=== PATIENT | male | born 1960 | race Caucasian/White ===

== ENCOUNTER 2016-04-05 15:36 | Emergency (ER) | payer OTHER ==
--- NOTE | 2016-04-05 15:52 | EDPHY ---
H & P Source: Patient, EMS Exam Limitations: No limitations HPI/ROS: CHIEF COMPLAINT: A skiing accident, right-sided rib pain HISTORY OF PRESENT ILLNESS: Patient was skiing this afternoon at [place]. He came to an area that he felt was too steep to ski on, thus he removed his skis. He was walking through this area when he slipped and began to slide. He said that he slipped approximately 50 feet when he struck a tree. HE struck a tree with the right anterior ribs. SInce that time he has had a sharp pain in that area and some shortness of breath. Mild to moderate 1st, now moderate to severe. Worse with inspiration and palpation. Focally over the right anterior axillary line. NO left-sided pain. NO head or neck injury. No loss of consciousness. No back pain. No abdominal pain. NO injuries to the extremities. Injury occurred within the past 2 hours. NO other associated complaints or modifying factors. REVIEW OF SYSTEMS: Ten systems reviewed and are negative unless otherwise noted in the HPI EXAMINATION General Appearance: Alert, no distress Head: normocephalic, atraumatic . No hematoma. NO abrasions or lacerations. Eyes: Pupils equal and round, no conjunctival pallor or injection . EOMs intact. ENT, Mouth: Mucous membranes moist . Uvula midline pain Neck: Normal inspection, supple, non-tender. Painless range of motion all planes. NO bony crepitus or deformity. Respiratory: Lungs are clear to auscultation . No wheezing or rhonchi. There is splinting with inspiration. There is pain to palpation of the right anterior axillary and midaxillary line. NO crepitus or increased tympany. Cardiovascular: Regular rate and rhythm . NO murmur. Pulses intact distally Gastrointestinal: Abdomen is soft and nontender. No tympany or rigidity. Back: non-tender, no bony abnormalities Neurological: A&O, nonfocal, normal gait . Strength is symmetric in all limbs of 5/5 Skin: Warm and dry, no rash Extremities: Nontender, no pedal edema Psychiatric: Mood and affect normal DIFFERENTIAL DIAGNOSES: Including but not limited to Pneumothorax, rib fracture MDM: 3:45 p.m. fall while skiing today. He is up sliding down the hill, returning on to his back side and struck a tree on the right side of his ribs. No head injury or LOC. Pain is on the right side of the ribs on the anterior and mid axillary line. No shortness of breath at this time. Painful inspiration. Vital signs are all within normal limits. 4:15 p.m. right-sided apical pneumothorax that is very small. This is consistent clinically with his mechanism of injury and pain. I have consulted Trauma surgeon Dr. Friedman. He will evaluate the patient in the emergency department. Patient remains hemodynamically stable in no acute distress. 6:30 p.m. Right non-displaced rib fracture with Small, right apical pneumothorax has been treated with a percutaneous chest thoracostomy tube. This was placed by Dr. Friedman. I initially discussed a CT scan of the chest with Dr. Friedman, but he feels the patient does not need this at this time. Repeat chest x-ray was read as normal by Dr. Friedman. He instructed me that the patient may be discharged home with the care as listed in the instructions from discharge. He is to follow up with primary care physician back in [place]. ER precautions were discussed. He is feeling significantly better at this time. Discharged home with pain medication, cough medicine and instructions to take ibuprofen [id number]. Discharged home stable condition feeling significantly better the time of arrival. SUPERVISION: Patient was evaluated in conjunction with the supervising physician. Please see their note for details. (Efren Toth) Constitutional: Initial Vital Signs Temperature (C) 97.7 F 04/05/16 15:43 Heart Rate 93 04/05/16 15:43 Respiratory Rate 18 04/05/16 15:43 Blood Pressure 158/96 H 04/05/16 15:43 O2 Sat (%) 93 04/05/16 15:43 O2 Delivery Mode Room Air Allergies/Adverse Reactions: No Known Allergies Allergy (Unverified 04/05/16 15:45) Home Medications: Medication Instructions Recorded Benzonatate [Tessalon Pearles (RX)] 100 mg PO Q8 PRN #15 cap 04/05/16 Ondansetron Odt [Zofran Odt 4 mg 4 mg PO Q6 PRN #12 tab 04/05/16 (*)] oxyCODONE HCL/ACETAMINOPHEN 1 each PO Q4-6PRN PRN #20 tablet 04/05/16 [Percocet 5-325 mg Tablet] Medical Decision Making Other Provider: This patient was initially evaluated by the physician home health assistant. I met and examined the patient. He is a 55 year old male who fell on the ski slope, striking a tree with his right chest. He has incurred a right rib fracture with small pneumothorax. Percutaneous chest tube placed by Dr. Friedman. Patient subsequently much more comfortable with no complaints of shortness of breath. At time of my exam: Alert, Lungs CTA, Heart RRR, Abdomen soft and nontender, Neck without c-spine tenderness. Back without T-L spine tederness.Moving all extremities easily. I am the secondary supervising physician. (Marilee Sinclair) - Data Points Medications Given: Discontinued Medications Sodium Chloride (Ns) 1,000 mls @ 0 mls/hr IV ONCE ONE PRN Reason: Wide Open Stop: 04/05/16 16:14 Last Admin: 04/05/16 16:43 Dose: 1,000 mls Ketorolac Tromethamine (Toradol) 30 mg IVP EDNOW ONE Stop: 04/05/16 17:42 Last Admin: 04/05/16 17:45 Dose: 30 mg Oxycodone/Acetaminophen (Percocet 5/325mg Prepack#4) 1 btl TAKEHOME EDNOW ONE Stop: 04/05/16 18:29 Last Admin: 04/05/16 18:51 Dose: 1 btl Departure - Departure Disposition: Home, Routine, Self-Care Instructions: Traumatic Pneumothorax (ED), How to Care for Your Chest or Abdominal Catheter (ED) Additional Instructions: Follow-up with primary care physician upon return home to [place]. Take ibuprofen 800 mg every 8 hours around the clock even if symptoms improve. Bubble test tube daily with a couple water as described by Dr. Friedman. Recommend a chest x-ray with primary care physician prior to the chest tubes being discontinued. Also recommend that there be no bubbles for 24 hours prior to discontinuing the chest tube. No activity restrictions per Dr. Friedman. May shower per Dr. Friedman. Referrals: Rhys Gary MD [Medical Doctor] - As per Instructions Patient,NotPresent [Unknown] - As per Instructions Prescriptions: Benzonatate [Tessalon Pearles (RX)] 100 mg PO Q8 PRN #15 cap PRN Reason: Cough, Mild Ondansetron Odt [Zofran Odt 4 mg (*)] 4 mg PO Q6 PRN #12 tab PRN Reason: Nausea/Vomiting, Use 1st oxyCODONE HCL/ACETAMINOPHEN [Percocet 5-325 mg Tablet] 1 each PO Q4-6PRN PRN # 20 tablet PRN Reason: Pain, Breakthrough
[2016-04-05] MEDS ORDERED: NS 1,000 ML IV ONE (16:13)
[2016-04-05] MEDS ORDERED: KETOROLAC 30 MG/1 ML SDV IVP ONE (17:41)
[2016-04-05] MEDS ORDERED: OXYCODONE/APAP 5/325MG PREPACK#4 BTL TAKEHOME ONE (18:28)
[2016-04-05 19:02] VITALS: BP 126/94; PULSE 81; RESP 16; TEMP 98.8; O2SAT 95
--- NOTE | 2016-04-05 19:51 | GCON ---
[f rep st] CONSULTATION DATE OF CONSULTATION: 04/05/2016 REFERRING PHYSICIAN: Efren Toth PA-C REASON FOR EVALUATION: Pneumothorax. HISTORY OF PRESENT ILLNESS: 55-year-old healthy male, slipped and fell while skiing at [place] today. He complained of severe right-sided chest pain, for which he presented to the emergency room for further workup. ED workup disclosed a right pneumothorax, for which surgery has been requested for further recommendations. The patient reports antecedent history of recent upper respiratory infection with a notable cough. He denies current fevers or chills. He denies loss of consciousness. He denies neck pain. He denies visual changes. He denies abdominal complaints. He denies upper or lower extremity complaints. PAST MEDICAL HISTORY: None. PAST SURGICAL HISTORY: Hemithyroidectomy. MEDICATIONS: Levothyroxine. ALLERGIES: No known drug allergies. SOCIAL HISTORY: No significant alcohol or tobacco. He is visiting from [place]. 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 FAMILY HISTORY: Unremarkable. REVIEW OF SYSTEMS: Notable for above respiratory complaints and acute traumatic events only. Otherwise, negative 10-point review of systems. PHYSICAL EXAM: VITAL SIGNS: Temperature 36.9, blood pressure 150/100, pulse 76, respirations 18. PRIMARY SURVEY: ABC intact. SECONDARY SURVEY: GENERAL: The patient is alert and appropriate, initially uncomfortable. HEENT: Unremarkable. NECK: Well-healed thyroidectomy incision. Trachea midline, without crepitus.Cervical spine nontender. HEART: Regular, without murmurs. LUNGS: Diminished right lung field, normal left, without wheezes. CHEST: With mild right lateral tenderness without obvious step-off or deformity. No chest wall ecchymosis. ABDOMEN: Soft, nontender, nondistended. PELVIS: Nontender. EXTREMITIES: Normal bilateral lower extremities, without step-offs or deformities. BACK: Thoracic and lumbar spines nontender. Chest x-ray: Small right pneumothorax, with at least 1 right lateral displaced rib fracture. Equivocal upper thoracic spine compression deformity (without clinical correlation). Right lower lobe contusion versus atelectasis. Hemoglobin 15. Electrolytes within reference range. IMPRESSION: 1. Traumatic right pneumothorax with associated rib fracture. 2. Recent upper respiratory infection. 3. Visiting from out of town. RECOMMENDATIONS: We discussed the option of continued serial imaging studies for pneumothorax progression versus chest tube placement. At this time, favor chest tube placement given the patient's ongoing cough symptoms to facilitate ongoing outpatient management while patient anticipates return to [place] on Tuesday. Recommend maintaining tube in place until returning home. Care instructions were described in detail. Will plan to see back on an as-needed basis while visiting here in [place]. Post procedural X-ray with near complete lung re-expansion and significant improvement in breathing. Procedure note: The right chest was anesthetized with 1% lidocaine. An Arrow percutaneous tube thoracostomy tube was utilized. A small incision was created in the right midclavicular line, approximately second intercostal space. The tube was easily passed in the chest cavity as noted above upon bubbling in the syringe. The catheter was passed to its hub. This was secured to the chest with a suture. Upon hooking to the Heimlich valve, there was notable rhythmical respiration and bubbling noted in the water cup. Tegaderm was applied, and a portable chest x-ray was ordered. /[id number]/MODL MTDD
== END 2016-04-05 19:30 | disposition home or self-care (01) ==
PROC: 0W9930Z Drainage of Right Pleural Cavity with Drainage Device, Percutaneous Approach (ICD-10-PCS; principal; 2016-04-05)
DX: S20.219A Contusion of unspecified front wall of thorax, initial encounter (principal); S27.0XXA Traumatic pneumothorax, initial encounter; V00.322A Snow-skier colliding with stationary object, initial encounter; Y92.89 Other specified places as the place of occurrence of the external cause; Y93.23 Activity, snow (alpine) (downhill) skiing, snowboarding, sledding, tobogganing and snow tubing
CPT/HCPCS: 82947-QW; 96374; J1885